=== PATIENT | male | born 1950 | race Caucasian/White ===

== ENCOUNTER 2016-09-04 09:55 | Inpatient (IN) | payer BC, MEDICARE ==
[2016-08-23 10:49] LABS: ASCORBIC ACID (UR NOT ORDER) NEG (NEG); BILIRUBIN, URINE NEGATIVE (NEG); KETONE, URINE NEGATIVE (NEG); LEUKOCYTE ESTERASE(NOT OR NEG (NEG); WBC (NOT ORDERED) (RFLEX) < 1 (0-5)
[2016-08-23 10:50] LABS: INTERNATIONAL NORMAL RATI 1.5 UNITS (-)
[2016-08-23 10:51] LABS: PARTIAL THROMBO TIME 52.8 SEC (22.5-37.2); PROTIME (NOT ORD) 17.8 SEC (12.0-14.5)
[2016-08-23 11:00] LABS: BASOPHILS 0.7 %; BASOPHILS ABSOLUTE 0.06 10/3/uL (0.0-0.16); EOSINOPHILS 7.6 %; EOSINOPHILS ABSOLUTE 0.66 10/3/uL (0.0-0.53); IMMATURE GRANULOCYTES 0.6 %; IMMATURE GRANULOCYTES ABSOLUTE 0.05 10/3/uL (0.0-0.11); LYMPHOCYTES 19.5 %; LYMPHOCYTES ABSOLUTE 1.68 10/3/uL (0.67-4.30); MEAN CORPUS HGB CONC 34.6 g/dL (32.0-36.0); MEAN CORPUSCULAR HEMOGLOB 32.2 pg (26.0-34.0); MEAN CORPUSCULAR VOLUME 92.9 fL (80-100); MONOCYTES 9.5 %; MONOCYTES ABSOLUTE 0.82 10/3/uL (0.21-1.20); NEUTROPHILS 62.1 %; NEUTROPHILS ABSOLUTE 5.36 10/3/uL (2.02-8.40); NUCLEATED RED BLOOD CELLS 1.3 /100WBC (0-0); PLATELET COUNT 313 10/3/uL (150-400); RBC DISTRIBUTION WIDTH 12.9 % (12.0-16.0)
[2016-08-23 11:03] LABS: HEMATOCRIT 47.4 % (40.0-51.0); HEMOGLOBIN 16.4 g/dL (13.6-17.8); MANUAL DIFF NO %; WHITE BLOOD CELLS 8.6 10/3/uL (4.5-10.5)
[2016-08-23 11:21] LABS: A/G RATIO 1.1 (0.7-1.9); ALBUMIN 3.8 G/DL (3.5-5.0); ALKALINE PHOSPHATASE 117 U/L (45-117); CHLORIDE, SERUM 100 MMOL/L (96-112); CO2 (CARBON DIOXIDE) 29 MMOL/L (24-34); CREATININE 0.89 MG/DL (0.70-1.30); GFR AFRICAN AMERICAN 104 ML/MIN (>=60); GFR NON AFRICAN AMERICAN 90 ML/MIN (>=60); GLOBULIN 3.6 G/DL (2.5-4.1); POTASSIUM, SERUM 4.6 MMOL/L (3.5-5.3); SGOT(AST) 32 U/L (5-40); SGPT(ALT) 45 U/L (5-65); SODIUM, SERUM 137 MMOL/L (135-148); TOTAL PROTEIN 7.4 G/DL (6.0-8.5)
[2016-08-23 11:22] LABS: BUN (BLOOD UREA NITROGEN) 13 MG/DL (6-23); CALCIUM, SERUM 9.4 MG/DL (8.5-10.4); GLUCOSE, SERUM 209 MG/DL (60-99); TOTAL BILIRUBIN 1.2 MG/DL (0-1.2)
--- NOTE | ~2016-09-04 | DS ---
Discharge Summary [facility] [address] [place]. [address] NAME: CLAY RUSHING SR : 51 STATUS : DIS IN PAT#: [id number] AGE: 66 ADM/REG DATE : 09/04/16 MR#: [id number] REPORT SERV DATE: 09/21/16 DICTATED BY: JANES MADSEN DATE: 09/20/16 REPORT STATUS : Draft TRANSCRIBED BY: JERRI DATE: 09/20/16 Data Collection from hospitalization DISCHARGE DIAGNOSES: 1. Bilateral knee arthritis. 2. Diabetes mellitus. 3. Hypertension. 4. Hypothyroidism. 5. Atrial fibrillation. CONSULTATIONS: None. PROCEDURES PERFORMED: Bilateral total knee arthroplasty on 09/04/2016. PATHOLOGY: Bone and soft tissue, right and left knee arthroplasty - degenerative joint disease with eburnation. No infection or neoplasm. MEDICATIONS: Norvasc 10 mg every morning, Lovenox 30 mg subcutaneously twice a day, Synthroid 175 mcg daily, Claritin 10 mg daily, Glucophage 500 mg with breakfast and supper, Toprol-XL 25 mg daily, Roxicodone 5-10 mg every four hours as needed, and Zocor 80 mg daily. CONDITION AT DISCHARGE: Stable. DISPOSITION: The patient was discharged home on an 1800-calorie diabetic diet with activities as instructed. He would follow up with me on 09/19/2016. He would follow up with his primary care physician, Dr. Hammond, for an outpatient sleep study. He was to follow up at [facility] for a physical therapy on 09/10/2016. HOSPITAL COURSE: This is a 66-year-old man who presented with the chief complaint of bilateral knee pain. He has a long history of bilateral knee pain consistent with osteoarthritis. Treatment options were discussed and it was elected to proceed with surgical intervention. He was admitted to the hospital at this time for further evaluation and treatment. Upon admission, he was taken to the operating room where he underwent the above-mentioned procedure. He tolerated this well, and there were no complications. On postop day #1, he was evaluated by Occupational and Physical Therapy. He had no edema. Over the next couple of days, he continued to progress. He was up sitting in a bedside chair. JOSSIE hose were in place. The patient was in atrial fibrillation. He was being placed on Lovenox. Synthroid was continued as well as simvastatin. Level 2 sliding scale insulin continued. Amlodipine and metoprolol were continued. On 09/07/2016, the nurse reported that the patient had decreased O2 saturation during physical therapy and ambulation. It was felt that he may need a sleep study for obstructive sleep apnea as an outpatient. His said he snores terribly at night. He was now on Lovenox. Discharge instructions were given. Due to his improved and stable condition, he was discharged home with the above-stated instructions. Information collected by: Yamilet Tavares Discharge Summary [facility] [address] [facility] [place]. [address] NAME: CLAY RUSHING SR : 51 STATUS : DIS IN PAT#: [id number] AGE: 66 ADM/REG DATE : 09/04/16 MR#: [id number] REPORT SERV DATE: 09/21/16 DICTATED BY: JANES MADSEN DATE: 09/20/16 REPORT STATUS : Draft TRANSCRIBED BY: JERRI DATE: 09/20/16 I submit the above information as my discharge summary. ANN/JERRI Janes Madsen M.D. / [id number] CC: Aditi Tran D.O.
--- NOTE | ~2016-09-04 | OP ---
Record Of Operation [facility] [address] [place]. [address] NAME: CLAY RUSHING SR : 51 STATUS : ADM IN PAT#: [id number] AGE: 66 ADM/REG DATE : 09/04/16 MR#: [id number] REPORT SERV DATE: 09/04/16 DICTATED BY: JANES MADSEN DATE: 09/04/16 REPORT STATUS : Draft TRANSCRIBED BY: MODL DATE: 09/04/16 DATE OF PROCEDURE: 09/04/2016 PREOPERATIVE DIAGNOSIS: Bilateral knee arthritis. POSTOPERATIVE DIAGNOSIS: Bilateral knee arthritis. PROCEDURE PERFORMED: Bilateral total knee arthroplasty. SURGEON: Janes Madsen M.D. ASSISTANTS: Blanco Berkowitz and Jorge A Faye. ANESTHESIA: General with adductor block and local infusions. PROCEDURE IN DETAIL: The patient is clearly identified and after obtaining informed consent is brought to the operating room at [facility] where anesthesia is induced uneventfully with excellent anesthetic effect. This concluded, with right knee being more symptomatic, we approached the right knee first. After Esmarch exsanguination was performed, the affected extremity is prepped and draped in the usual manner and after an appropriate time-out procedure is performed, via an anterior approach, the skin is divided, fascial planes are elevated, paramedial approach to the knee is made. The structures themselves are elevated, excised, and debrided where appropriate, whereupon the patella is carefully everted, calipered, and planed and with the size and type being reproduced with the appropriate-size patella, trialing is performed successfully. At this point, the patella is then carefully subluxed laterally, the knee is flexed, osteophytes around the distal femur are removed, followed by the ACL being divided. The femoral canal is entered and vented, at which point with the intramedullary guide being utilized, the distal femoral cut is made. At this point, the tibia is carefully subluxed anteriorly. The surrounding soft tissues to the tibia are protected with Hohmann retractors, at which point the extramedullary guide is utilized to perform the proximal tibial cut and after cleansing these tissues, the spacer block is utilized in extension to confirm excellent extension, stability, and alignment. The guiding pins are then all carefully removed and the knee is then flexed. The femur is sized, whereupon the anterior, posterior, chamfer, and box cuts are made appropriately. The proximal tibia then is assessed. Osteophytes and surrounding soft tissues are removed and debrided where appropriate. Posterior osteophytes are removed as well. The menisci are excised and thus concluding trialing performed successfully. The proximal tibia then is carefully prepared utilizing proper cement technique. The permanent implants have been carefully placed into position uneventfully whereupon copious irrigation is performed, the permanent tibial implants applied and thus concluded. With this concluded, anesthesia cleared for left lower extremity where upon after Esmarch exsanguination is performed, tourniquet is elevated at 350 mmHg. This is successfully tested. The affected extremity is prepped and draped in the usual manner and after an appropriate time-out procedure is performed, via an anterior approach, the skin is divided, fascial planes are elevated, paramedial approach to the knee is made. The structures Record Of [facility] [address] [facility] [place]. [address] NAME: CLAY RUSHING : 51 STATUS : ADM IN [facility]#: [id number] AGE: 66 ADM/REG DATE : 09/04/16 MR#: [id number] REPORT SERV DATE: 09/04/16 DICTATED BY: JANES MADSEN DATE: 09/04/16 REPORT STATUS : Draft TRANSCRIBED BY: JERRI DATE: 09/04/16 themselves are elevated, excised, and debrided where appropriate, whereupon the patella is carefully everted, calipered, and planed and with the size and type being reproduced with the appropriate-size patella, trialing is performed successfully. At this point, the patella is then carefully subluxed laterally, the knee is flexed, osteophytes around the distal femur are removed, followed by the ACL being divided. The femoral canal is entered and vented, at which point with the intramedullary guide being utilized, the distal femoral cut is made. At this point, the tibia is carefully subluxed anteriorly. The surrounding soft tissues to the tibia are protected with Hohmann retractors, at which point the extramedullary guide is utilized to perform the proximal tibial cut and after cleansing these tissues, the spacer block is utilized in extension to confirm excellent extension, stability, and alignment. The guiding pins are then all carefully removed and the knee is then flexed. The femur is sized, whereupon the anterior, posterior, chamfer, and box cuts are made appropriately. The proximal tibia then is assessed. Osteophytes and surrounding soft tissues are removed and debrided where appropriate. Posterior osteophytes are removed as well. The menisci are excised and thus concluding trialing performed successfully. The proximal tibia then is carefully prepared utilizing proper cement technique. The permanent implants have been carefully placed into position uneventfully whereupon copious irrigation is performed, the permanent tibial implants applied and thus concluded. At this point, both lower extremities are cleansed and dressed and the patient is allowed to awaken and is transferred to the bed and subsequently to the recovery room in stable condition having tolerated the procedure well. ESTIMATED BLOOD LOSS: 150 mL. FLUIDS: 1000 mL. TOURNIQUET TIME: Right 40 minutes, left 43 minutes. PATHOLOGY: Sent specimen. MICROBIOLOGY: None. COMPLICATIONS: None. COUNTS: Sponge and needle count was reportedly correct. Antibiotics were administered appropriately preoperatively and ordered to be discontinued within 23 hours. IMPLANTS: Attune knee by [employer] for both knees, femur size 7, tibia 6, patella 41, polyethylene 7/8; and of note, we did right then left knees. TALYA/JERRI Janes Madsen M.D. Record Of Operation [address] [address] NAME: CLAY RUSHING SR : 51 STATUS : ADM IN [facility]#: [id number] AGE: 66 ADM/REG DATE : 09/04/16 MR#: [id number] REPORT SERV DATE: 09/04/16 DICTATED BY: JANES MADSEN DATE: 09/04/16 REPORT STATUS : Draft TRANSCRIBED BY: MODL DATE: 09/04/16 / [id number] CC: Aditi Tran D.O.
[~2016-09-04 09:55] MED LIST: ADVIL PO; ASAB PO; BACTRONASA NAS; CLARIT10 PO; FISH-EPA1000 MG PO; GLUCPH PO; LEVOTHYROXIN112 MCG PO; Multivitamin Tab; NIACIN 500 PO; NORV10 PO; PRADAXA150 MG PO; SYN88 PO; SYNTHROID175 MCG PO; TOPXL25 PO; ZOCOR40 PO
[2016-09-05 05:15] LABS: HEMATOCRIT 41.1 % (40.0-51.0)
[2016-09-05 05:18] LABS: INTERNATIONAL NORMAL RATI 1.1 UNITS (-)
[2016-09-05 05:19] LABS: PROTIME (NOT ORD) 14.4 SEC (12.0-14.5)
[2016-09-05 05:28] LABS: BUN (BLOOD UREA NITROGEN) 7 MG/DL (6-23); CALCIUM, SERUM 8.9 MG/DL (8.5-10.4); CHLORIDE, SERUM 99 MMOL/L (96-112); CO2 (CARBON DIOXIDE) 29 MMOL/L (24-34); GFR AFRICAN AMERICAN 109 ML/MIN (>=60); GFR NON AFRICAN AMERICAN 94 ML/MIN (>=60); GLUCOSE, SERUM 205 MG/DL (60-99); POTASSIUM, SERUM 4.7 MMOL/L (3.5-5.3); SODIUM, SERUM 136 MMOL/L (135-148)
[2016-09-06 05:37] LABS: INTERNATIONAL NORMAL RATI 1.1 UNITS (-)
[2016-09-06 05:41] LABS: HEMATOCRIT 29.1 % (40.0-51.0); HEMOGLOBIN 10.1 g/dL (13.6-17.8)
[2016-09-07 06:07] LABS: HEMATOCRIT 26.5 % (40.0-51.0); HEMOGLOBIN 9.1 g/dL (13.6-17.8)
[2016-09-07 06:12] LABS: INTERNATIONAL NORMAL RATI 1.1 UNITS (-); PROTIME (NOT ORD) 14.2 SEC (12.0-14.5)
[2016-09-07] MEDS ORDERED: LOVENOX SC (12:31)
[2016-09-07] MEDS ORDERED: OXYCOD PO (12:32)
== END 2016-09-07 14:57 | disposition home or self-care (01) | DRG 462 ==
LOC: SDC/OF 09:55 → 3SO 18:02
PROVIDERS: Orthopaedic Surgery
PROC: 0SRC0J9 Replacement of Right Knee Joint with Synthetic Substitute, Cemented, Open Approach (ICD-10-PCS; 2016-09-04)
PROC: 0SRD0J9 Replacement of Left Knee Joint with Synthetic Substitute, Cemented, Open Approach (ICD-10-PCS; principal; 2016-09-04 12:00)
DX: M17.0 Bilateral primary osteoarthritis of knee (principal); I48.91 Unspecified atrial fibrillation; E11.65 Type 2 diabetes mellitus with hyperglycemia; I10 Essential (primary) hypertension; E78.5 Hyperlipidemia, unspecified; E03.9 Hypothyroidism, unspecified; Z88.8 Allergy status to other drugs, medicaments and biological substances; Z79.02 Long term (current) use of antithrombotics/antiplatelets; Z79.899 Other long term (current) drug therapy
CPT/HCPCS: 36415; 71010; 71020; 80048; 80053; 81001; 82962; 85014; 85018; 85025; 85610; 85730; 86850; 86900; 86901; 87641; 88305; 88311; 93005; 97110-GP; 97116-GP; 97161-GP; 97165-GO; 97535-GO; A9270-GY; C1776; J0690; J1170; J1885; J2250; J2270; J2405; J2710; J2795; J3010; J3370